=== PATIENT | female | born 1940 | race Caucasian/White ===

== ENCOUNTER 2016-11-30 09:14 | Outpatient (CLI) | payer MEDICARE, BC | END 2016-11-30 09:15 | disposition home or self-care (01) | DX: C92.11 Chronic myeloid leukemia, BCR/ABL-positive, in remission (principal) ==

== ENCOUNTER 2017-01-30 14:19 | Outpatient (CLI) | payer MEDICARE, BC | END 2017-01-30 14:20 | disposition home or self-care (01) | DX: N30.01 Acute cystitis with hematuria (principal) ==

== ENCOUNTER 2017-02-22 11:38 | Outpatient (CLI) | payer MEDICARE, BC | END 2017-02-22 11:39 | disposition home or self-care (01) | DX: C92.11 Chronic myeloid leukemia, BCR/ABL-positive, in remission (principal) ==